=== PATIENT | female | born 1950 | race Caucasian/White ===

== ENCOUNTER → 2016-12-05 | Outpatient (CLI) | payer OTHER | LOC: FIMAGING 11:49 | PROVIDERS: ATTEND Internal Medicine | DX: Z13.820 Encounter for screening for osteoporosis (principal); Z78.0 Asymptomatic menopausal state | CPT/HCPCS: G0202 ==

== ENCOUNTER 2017-05-05 09:49 | Observation (INO) | payer OTHER ==
[2017-05-05] MEDS ORDERED: ASPIRIN 81 MG CHEWABLE TAB PO ONE (09:51)
--- NOTE | 2017-05-05 09:51 | EDPHY ---
H & P Time Seen by Provider: 05/05/17 09:57 HPI/ROS: HPI CHIEF COMPLAINT: Jaw pain, shortness of breath, dyspnea on exertion, lightheadedness, nausea HISTORY OF PRESENT ILLNESS: Patient very pleasant 66-year-old female she has a history of hypertension, and "thickened heart from underlying hypertension" additionally she is a breast cancer survivor, no history of heart disease or CVA , she presents to the emergency room by private vehicle with shortness of breath x1 week, and last night she reports that she had some left-sided jaw pain lasting a few hours additionally had palpitations last night states that her heart was fast and slow then irregular. She denies any chest pain or chest pressure however noticed today that she has significant shortness of breath over the past 5 days. Sometimes worse with exertion. Patient denies any recent illness denies fever, productive cough, pleuritic pain. Past Medical History: Hypertension, breast cancer Past Surgical History: No recent surgery Social History: Denies drugs alcohol tobacco. Family History: Noncontributory ROS REVIEW OF SYSTEMS: A comprehensive 10 point review of systems is otherwise negative aside from elements mentioned in the history of present illness. Exam Constitutional appears well nontoxic triage nursing summary reviewed, vital signs reviewed, awake/alert. Noted to be hypertensive at triage. Eyes normal conjunctivae and sclera, EOMI, PERRLA. HENT normal inspection, atraumatic, moist mucus membranes, no epistaxis, neck supple/ no meningismus, no raccoon eyes. Respiratory somewhat labored when she walks, clear to auscultation bilaterally , normal breath sounds, no respiratory distress, no wheezing. Cardiovascular rate normal, regular rhythm, no murmur, no edema, distal pulses normal. Gastrointestinal soft, non-tender, no rebound, no guarding, normal bowel sounds, no distension, no pulsatile mass. Genitourinary no CVA tenderness. Musculoskeletal no midline vertebral tenderness, full range of motion, no calf swelling, no tenderness of extremities, no meningismus, good pulses, neurovascularly intact. Skin pink, warm, & dry, no rash, skin atraumatic. Neurologic awake, alert and oriented x 3, AAOx3, moves all 4 extremities equally, motor intact, sensory intact, CN II-XII intact, normal cerebellar, normal vision, normal speech. Psychiatric normal mood/affect. Heme/Lymph/Immune no lymphadenopathy. Differential diagnosis includes but is not limited to: ACS, atypical chest pain , pneumothorax, pneumonia, pulmonary embolism, aortic dissection, congestive heart failure, tumor, musculoskeletal pain, esophageal pain, GERD, peptic ulcer disease, pancreatitis Medical Decision Making: Plan for this patient IV establishment blood draw, obtain EKG and chest x-ray, full air sampling and monitoring, check troponin, rule out acute coronary syndrome, check D-dimer for PE given cancer history. Re-evaluation: EKG interpretation by me on record in [employer] system. Impression time of EKG 9:59 a.m., sinus rhythm rate of 71 LVH by voltage. Q-waves V1 V2 V3. No ST elevation. No significant ST depression. T-waves are normal. 1045: Patient noted to have a positive D-dimer 5.3. Will proceed with CT angiogram to rule out pulmonary embolism. 1150AM: Patient resting comfortably. No chest pain at this time. CT angiogram of his chest does not show a pulmonary embolism. There are pulmonary nodules seen that will need follow-up I relayed this to the patient. Additionally EKG is nonischemic, negative troponin. Recommend hospital admission for shortness of breath unexplained, dyspnea on exertion, some jaw pain, and nausea. Could be an anginal equivalent. Hospitalization overnight. Spoke with [facility], who has accepted admission for Dr. Fischer. Source: Patient Constitutional: Initial Vital Signs Temperature (C) 36.6 C 05/05/17 09:56 Heart Rate 76 05/05/17 09:56 Respiratory Rate 18 05/05/17 09:56 Blood Pressure 175/96 H 05/05/17 09:56 O2 Sat (%) 94 05/05/17 09:56 O2 Delivery Mode Room Air O2 (L/minute) 2 Allergies/Adverse Reactions: No Known Allergies Allergy (Verified 05/05/17 09:57) Home Medications: Medication Instructions Recorded Carvedilol [Coreg] 12.5 mg PO BID 05/05/17 Ferrous Gluconate 240 mg PO HS 05/05/17 Levothyroxine [Synthroid 100 mcg 100 mcg PO DAILY06 05/05/17 (*)] Lisinopril [Zestril 40 mg (*)] 40 mg PO DAILY 05/05/17 amLODIPine BESYLATE [Norvasc 2.5 2.5 mg PO DAILY 03/03/18 mg (*)] Medical Decision Making - Diagnostics Imaging Results: Imaging Impressions Chest X-Ray 05/05/17 09:51 Impression: 1. No focal pneumonia or congestive heart failure. 2. No pleural effusion or pneumothorax. Findings and recommendations discussed with emergency department physician, Ministerio Rubio MD at 1035 hours on May 05, 2017. Final report concurs with initial preliminary interpretation. Chest/Thorax CTA 05/05/17 10:45 Impression: 1. No definite pulmonary thromboemboli. 2. No aortic aneurysm or dissection. 3. No pneumonia, pleural effusion, or pneumothorax. Right upper lobe 4 mm and left lower lobe 3 mm nonspecific, noncalcified pulmonary nodules for which follow-up CT chest is recommended in six months with continued monitoring up to two years to ensure stability, if there are no prior studies for comparison. Findings and recommendations discussed with emergency department physician, Ministerio Rubio MD at 1140 hours on May 05, 2017. Final report concurs with initial preliminary interpretation. A test result has been communicated to a licensed care provider and documented in the [facility] system on 05/05/2017 11:40, Message ID [id number]. - Data Points Laboratory Results: Laboratory Results 05/05/17 10:04 05/05/17 10:04 Medications Given: Ondansetron HCl (Zofran) 4 mg IVP Q4HRS PRN PRN Reason: Nausea/Vomiting, Can't Take PO Stop: 11/01/17 11:48 Last Admin: 05/05/17 12:02 Dose: 4 mg Discontinued Medications Aspirin (Aspirin) 324 mg PO EDNOW ONE Stop: 05/05/17 09:52 Last Admin: 05/05/17 10:01 Dose: 324 mg Hydromorphone HCl (Dilaudid) 0.5 mg IVP EDNOW ONE Stop: 05/05/17 13:05 Last Admin: 05/05/17 13:06 Dose: Not Given Sodium Chloride (Ns) 1,000 mls @ 0 mls/hr IV ONCE ONE PRN Reason: Wide Open Stop: 05/05/17 11:50 Last Admin: 05/05/17 12:01 Dose: 1,000 mls Departure - Departure Disposition: [facility] Inpatient Acute Clinical Impression: Jaw pain, Shortness of breath Condition: Fair
--- NOTE | 2017-05-05 10:01 | CPEKG ---
Heart Rate: 71 RR Interval: 845 P-R Interval: 216 QRSD Interval: 90 QT Interval: 392 QTC Interval: 426 P Dalzell: 35 QRS Dalzell: -14 T Wave Dalzell: 36 EKG Severity - BORDERLINE ECG - EKG Impression: SINUS RHYTHM Electronically Signed By: Abner William 09-May-2017 08:54:09
[2017-05-05 10:11] LABS: PLATELET COUNT 306 10^3/uL (150-400)
[2017-05-05 10:25] LABS: PROTIME(PATIENT) 13.1 SEC (12.0-15.0)
[2017-05-05 10:26] LABS: CREATINE KINASE 46 IU/L (0-156)
[2017-05-05] MEDS ORDERED: IOPAMIDOL (ISOVUE 370) 100 ML BTL IV ONE (10:55)
[2017-05-05] MEDS ORDERED: ONDANSETRON 4 MG/2 ML VIAL IVP PRN ×2 (11:49→13:53)
[2017-05-05] MEDS ORDERED: NS 1,000 ML IV ONE (11:49)
[2017-05-05] MEDS ORDERED: ONDANSETRON 4 MG/2 ML VIAL ONE (11:59)
[2017-05-05] MEDS ORDERED: HYDROmorphONE/DILAUDID 2 MG/ML INJ IVP ONE (13:04)
--- NOTE | 2017-05-05 13:46 | PDGENHP ---
History and Physical History and Physical: CC: jaw pain and dyspnea HISTORY: Beverly comes to [facility] ER today and now transferred to our PCU for observation and management of resp symtpoms and jaw pain. For 5-6 days she has noticed some exertional dyspnea. She feels it with as little exertion is walking across the room, however she is able to go up and down stairs single flights and to walk her dog without stopping. She says she does walk her dog little more slowly than usual. There is no cough, the nasal or sinus congestion , sore throat, fever. She has had no pains or aches in her chest or back or arms neck or jaw associated with this dyspnea and she has had no pain or swelling in her legs. She has never had this before and has no history of lung disease or asthma. She is a former smoker who quit 21 years ago. Last night she was awakened from sleep in the middle of the night with what she describes as a sensation that her heart was doing summer salts. There were 2 episodes of this summer salting each lasting 10-15 seconds and occurring about 15-20 seconds apart. They were felt in the upper sternal area but a sensation moved up into her neck during each episode. Is around this time that she started noticing some ache in the left side of her jaw that lasted approximately half an hour. There was no chest pain or pressure, dyspnea, nausea or sweats associated with this. However since then she states she is more aware of her heart beating, but no fast or slow or irregular heart beats. There is a history chronically of experiencing intermittent palpitations that sound like premature single heartbeat but no tachycardias or bradycardias. She gives a history of being diagnosed with a thickened heart muscle caused by hypertension some years ago. This was determined by echocardiogram which was ordered because she was having some very high blood pressures though she had no particular symptoms of heart failure or angina. Since then she has kept her blood pressure in very good range but has not had any other cardiology evaluations. She is not diabetic, does not know her cholesterol, is a former smoker quit 21 years ago, hypertension as above, no family history of coronary disease PAST MEDICAL HISTORY: --Hypertrophic cardiomyopathy? "thickening of the heart muscle due to high blood pressure" -Hypertension -Hypothyroidism on replacement -Stage II breast cancer status post lumpectomy and treatment with Adriamycin and 1 other medicine, finish therapy 10 years ago, has been discharged from follow-up care by her oncologist due to no evidence of recurrence. -Cholecystectomy FAMILY MEDICAL HISTORY: No concerning or relevant illnesses in the family SOCIAL HISTORY: Works at [employer] Former smoker as above No alcohol or street drugs MEDICATIONS: The patients list has been reconciled by our clinical pharmacist in the EMR. I have reviewed the list and ordered appropriate medicines. PHYSICAL EXAMINATION: Vital Signs: Normal without fever Transmission Repairer: Sinus rhythm in the 60s and 70s Examination: General: alert, oriented, good mentation, relaxed Skin: warm, dry, good color, no rash HEENT: normal Neck: no mass or jvd Resps: relaxed Lungs: clear breath sounds Heart: regular, no murmur Abdomen: soft, nondistended, nontender, +BS, no mass Upper Extremities: normal Lower Extremities: no edema, warm No Bleeding or bruising Neurologic: normal speech/language, normal product manager e commerce, no focal weakness IV site: looks normal LABORATORY DATA: 1st troponin is normal Sodium and hemoglobin of both a bit elevated at 147 and 47 Chemistry panel is otherwise unremarkable and 1st cardiac troponin is negative CBC otherwise unremarkable A D-dimer was tested and has had elevated There is also a slight elevation of BNP RADIOLOGY STUDIES: I reviewed images from her chest CT and chest x-ray done at the ER. I agree with radiologist that there is no evidence of pulmonary emboli. There is no evidence of any heart failure cardiac enlargement and there is no infiltrate or pleural effusion. I do not see evidence of obstructive lung disease. 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 There could also be a respiratory component from her lungs however CT scan of the chest looks good in terms of lack of any obstructive changes and no PE. PLANS: -observe on secured entrance monitor -repeat cardiac enzymes and EKG -echocardiogram to reassess her left ventricular function, wall thickness, etc -plan on his treadmill stress test tomorrow and less there are clinical changes that direct this to angiography or other assessments -consider pulmonary function testing if there are no cardiac abnormalities identified -check her thyroid to make sure her replacement dose is appropriate I have reviewed the patient's past medical records as part of this assessment, including the outpatient ER records to today as well as previous hospital admission records
[2017-05-05] MEDS ORDERED: ACETAMINOPHEN 325 MG TAB PO PRN (13:53)
[2017-05-05] MEDS ORDERED: ZOLPIDEM TARTRATE 5 MG TAB PO PRN (13:53)
[2017-05-05] MEDS ORDERED: ONDANSETRON DISINTEGRATING 4 MG TAB PO PRN (13:53)
--- NOTE | 2017-05-05 15:06 | ASMTCMCOM ---
CM Note CM Note Notes: Pt has been admitted with SOB, chest pain. She has a hx of breast CA and HTN. A daughter Raquel lives in [place]. Cardiac workup in progress. CM will follow for any d/c needs. Date Signed: 05/05/2017 03:05 PM Electronically Signed By:NABIL Schwartz
--- NOTE | 2017-05-06 13:00 | CPR ---
[f rep st] NONINVASIVE CARDIAC PROCEDURE REPORT DATE OF PROCEDURE: 05/06/2017 INDICATION FOR PROCEDURE: Palpitations. PROCEDURE PERFORMED: Exercise treadmill stress test. Prior to exercise treadmill stress test, the patient had signed consent. The patient was started on the treadmill on a standard Valentin protocol. Baseline ECG demonstrated normal sinus rhythm with debra l intervals and normal axis. She was able to exercise for 6 minutes and 30 seconds on a standard Bru ce protocol. She had no complaints of chest pain, chest pressure. She had no complaints of palpitat ions. ECG demonstrated normal sinus rhythm without ischemic changes. Peak blood pressure of 178/76. She tolerated the treadmill well. There were no postprocedure arrhythmias. CONCLUSION: Normal exercise treadmill stress test. Joshua treadmill score of 6.5, low risk. No evide nce of arrhythmias. /[id number]/MODL
--- NOTE | 2017-05-06 14:44 | ECHO ---
[email or web address] [address] [address] Main: [phone] Fax: Transthoracic Echocardiogram Name: KEYLA GOLDSMITH MR#: [id number] Study Date: 05/06/2017 Study Time: 07:15 AM Date of : 1950 Age: 66 year(s) Height: 167.6 cm (66 in.) Weight: 81.65 kg (180 lb.) BSA: 1.91 m2 Gender: Female Examination: Echo Indication: Hx of hypertensive heart disease/anginal-type symptoms Image Quality: Contrast: Requested by: Tello Boles BP: 117 mmHg/65 mmHg Heart Rate: Rhythm: Indication: Hx of hypertensive heart disease/anginal-type symptoms Procedure Staff Screw Down: Keyla Rick [facility] Reading Physician: Trino Castillo MD Requesting Provider: Conclusions: Normal size left ventricle. No LV hypertrophy. Normal global systolic LV function. The ejection fraction is estimated to be 60-65 %. Normal RV function. The left atrium is normal in size. The right atrium is normal in size. Measurements: Chambers Valvular Assessment AV/MV Valvular Assessment TV/PV Normal Normal Normal Name Value Range Name Value Range Name Value Range Ao Cindy (MM): 3.4 cm (2.2 cm-3.7 AV meanP mmHg ( - ) cm) MV E Vmax: 0.72 m/s ( - ) IVSd (2D): 0.8 cm (0.6 cm-1.1 MV A Vmax: 0.87 m/s ( - ) cm) MV E/A: 0.83 ( - ) LVDd (2D): 5.1 cm (3.9 cm-5.3 cm) LVDs (2D): 3.2 cm (2.1 cm-4 cm) LVPWd (2D): 0.7 cm ( - ) LVEF (MOD4): 74 % (>=55 %) EF Range: 60-65 % Continued Measurements: Chambers Valvular Assessment AV/MV Name Value Name Value LADs: 3.9 cm MV E/E' Septal: 11.00 Patient: KEYLA GOLDSMITH Study Date: 05/06/2017 Page 1 of 2 07:15 AM LADs Lon.3 cm MV E/E' Lateral: 10.10 LA Area: 17.1 cm2 Additional Vessels Name Value Ao Ascendin.5 cm Findings: Left Ventricle: Normal size left ventricle. No LV hypertrophy. Normal global systolic LV function. The ejection fraction is estimated to be 60-65 %. No regional wall motion abnormality. Normal diastolic LV function. Right Ventricle: Normal size right ventricle. Normal RV function. Left Atrium: The left atrium is normal in size. Right Atrium: The right atrium is normal in size. Mitral Valve: The mitral valve is normal in appearance and function. Aortic Valve: The aortic valve is normal in appearance and function. Tricuspid Valve: The tricuspid valve is normal in appearance and function. Trivial tricuspid valve regurgitation. Pulmonic Valve: The pulmonic valve is normal in appearance and function. Trivial pulmonic valve regurgitation. Aorta: The aorta is normal. Pericardium: No pericardial effusion. There is pericardial fat. (No Signature Object) Patient: KEYLA GOLDSMITH Study Date: 05/06/2017 Page 2 of 2 07:15 AM [id number]
[2017-05-06 15:19] VITALS: BP 118/81; PULSE 86; RESP 19; TEMP 98.1; O2SAT 90
--- NOTE | 2017-05-06 17:27 | GDS ---
[f rep st] DISCHARGE SUMMARY DISCHARGE DIAGNOSES: 1. Chest pain and dyspnea on exertion. 2. Hypertension. 3. Breast cancer status post Adriamycin. 4. Pulmonary nodules. 5. Palpitations. HISTORY: The patient is a 66-year-old female who presented with dyspnea on exertion, chest and jaw p ain, as well as palpitations. She was admitted under observation. Had a complete workup, including CT angiogram of the chest, which was negative for pulmonary embolus, exercise treadmill test, which w as negative for ischemia, and an echocardiogram which showed normal ejection fraction. Otherwise, no thing remarkable. Her telemetry monitoring here was negative. TSH was 2.3. Could consider outpatie nt PFTs. She should also follow up with [facility] for Event monitoring regarding her ongoing pal pitations. DISCHARGE MEDICATIONS: Please see computer record for full detailed list. There were no new medicat ions given at time of hospital discharge. ADDITIONAL DISCHARGE INSTRUCTIONS: 1. Follow up [facility] for outpatient Event monitor. 2. Repeat CT scan of the chest in 6 months to follow up pulmonary nodules. Patient seen and examined by me on day of discharge. /[id number]/MODL
[2017-05-06] MEDS ORDERED: FERROUS GLUCONATE 240 MG PO SCH (21:00)
[2017-05-07] MEDS ORDERED: LEVOTHYROXINE 100 MCG TAB PO SCH (06:00)
[2017-05-07] MEDS ORDERED: LISINOPRIL 40 MG TAB PO SCH (09:00)
== END 2017-05-06 16:58 | disposition home or self-care (01) ==
LOC: CED 09:49 → CEDHOLD 11:41 → F2W 14:40
PROVIDERS: ADMIT Internal Medicine; ATTEND Internal Medicine
DX: R06.09 Other forms of dyspnea (principal); R07.89 Other chest pain; R68.84 Jaw pain; R00.2 Palpitations; R91.1 Solitary pulmonary nodule; I11.9 Hypertensive heart disease without heart failure; E03.9 Hypothyroidism, unspecified; Z87.891 Personal history of nicotine dependence; Z85.3 Personal history of malignant neoplasm of breast
CPT/HCPCS: 71045; 71275; 93005; 93017; 93306; 96361; 96374; 99285; G0378; 80048-PO; 80076-PO; 82550-PO; 82553-PO; 83690-PO; 83735-PO; 83880-PO; 84484-PO; 85025-PO; 85378-PO; 85610-PO; 85730-PO; J2405; Q9967